=== PATIENT | female | born 1955 | race Caucasian/White ===

== ENCOUNTER 2017-04-13 09:57 | Emergency (ER) | payer MEDICARE, OTHER ==
[2017-04-13 10:07] VITALS: BP 153/86; PULSE 100; RESP 17; TEMP 98.1
--- NOTE | 2017-04-13 10:29 | ED ---
General Adult HPI - General Chief complaint: Skin/Abscess/Foreign Body Stated complaint: POSS LARYNGITIS, FEMALE Time Seen by Provider: 04/13/17 10:13 Source: patient, RN notes reviewed Mode of arrival: ambulatory Limitations: physical limitation - History of Present Illness Initial comments: Patient is 61-year-old female who presents emergency room today with multiple complaints. She has mid to sore throat for the last 3 weeks. States that she has some laryngitis. States since this started 3 weeks ago after she had some injections in her back. She is unsure if she was intubated for these injections but she states that she was put to sleep. Patient is unsure about his related. She also admits that over the last today she's noticed a bump in the groin area on the left side when she wipes after going the bathroom. She states feels like it is an ingrown hair. She states it's mildly tender. She denies any drainage or discharge from the area. She denies any other complaints or symptoms. Patient denies any recent fever, chills, shortness of breath, chest pain, back pain, abdominal pain, nausea or vomiting, numbness or tingling, dysuria or hematuria, constipation or diarrhea, headaches or visual changes, or any other complaints. - Related Data Home Medications Medication Instructions Recorded Confirmed Albuterol Inhaler [Ventolin Hfa 2 puff INHALATION RT-QID PRN 04/13/17 04/13/17 Inhaler] Amitriptyline HCl [Elavil] 50 mg PO HS 04/13/17 04/13/17 Multivitamins, Thera [Multivitamin 1 tab PO DAILY 04/13/17 04/13/17 (formulary)] Omeprazole [PriLOSEC] 20 mg PO DAILY 04/13/17 04/13/17 SUMAtriptan SUCCINATE [Imitrex] 25 mg PO DAILY PRN 04/13/17 04/13/17 Topiramate [Topamax] 25 mg PO BID 04/13/17 04/13/17 Vitamin E (Dl,Tocopheryl Acet) 400 unit PO DAILY 04/13/17 04/13/17 [Vitamin E] Previous Rx's Medication Instructions Recorded Cephalexin [Keflex] 500 mg PO Q12HR 10 Days cap 04/13/17 Allergies Allergy/AdvReac Type Severity Reaction Status Date / Time basil AdvReac Nausea & Verified 04/13/17 10:30 Vomiting oregano AdvReac Nausea & Verified 04/13/17 10:30 Vomiting Review of Systems ROS Statement: Those systems with pertinent positive or pertinent negative responses have been documented in the HPI. ROS Other: All systems not noted in ROS Statement are negative. Past Medical History Past Medical History: GERD/Reflux Additional Past Medical History / Comment(s): chronic back pain, migraines History of Any Multi-Drug Resistant Organisms: None Reported Past Surgical History: Appendectomy, Tubal Ligation Additional Past Surgical History / Comment(s): bilateral hand, right shoulder Past Psychological History: No Psychological Hx Reported Smoking Status: Current every day smoker Past Alcohol Use History: Rare Past Drug Use History: None Reported General Exam - General Exam Comments Initial Comments: General: The patient is awake and alert, in no distress, and does not appear acutely ill. Eye: Pupils are equal, round and reactive to light, extra-ocular movements are intact. No nystagmus. There is normal conjunctiva bilaterally. No signs of icterus. Ears, nose, mouth and throat: There are moist mucous membranes and no oral lesions. Neck: The neck is supple, there is no tenderness or JVD. Cardiovascular: There is a regular rate and rhythm. No murmur, rub or gallop is appreciated. Respiratory: Lungs are clear to auscultation, respirations are non-labored, breath sounds are equal. No wheezes, stridor, rales, or rhonchi. Gastrointestinal: Soft, non-distended, non-tender abdomen without masses or organomegaly noted. There is no rebound or guarding present. No CVA tenderness. Bowel sounds are unremarkable. Musculoskeletal: Normal ROM, no tenderness. Strength 5/5. Sensation intact. Pulses equal bilaterally 2+. Neurological: A&O x 3. CN II-XII intact, There are no obvious motor or sensory deficits. Coordination appears grossly intact. Speech is normal. Skin: Skin is warm and dry and no rashes or lesions are noted. Psychiatric: Cooperative, appropriate mood & affect, normal judgment. : [employer] Lord present for exam. No abnormality on visual external exam. On palpation to the left lower labia there is some mild firmness. No abscess head Limitations: physical limitation Course Vital Signs 04/13/17 10:04 Temperature 98.1 F Pulse Rate 100 Respiratory 17 Rate Blood Pressure 153/86 O2 Sat by Pulse 100 Oximetry Medical Decision Making - Medical Decision Making Patient's strep test negative. Patient does have small abscess or beginnings of a Bartholin's cyst left labia. There is no obvious swelling. No obvious abscess head to drain at this time. Will be started on antibiotics advised close follow-up or return here to emergency room symptoms increase worsen. - Lab Data Lab Results 04/13/17 Range/Units 10:45 Group A Strep Rapid Negative (Negative) Disposition Clinical Impression: Laryngitis, Bartholin's cyst Disposition: HOME SELF-CARE Condition: Good Instructions: Bartholin Cyst (ED) Additional Instructions: Please use medication as discussed. Please follow-up with family doctor in the next 2 days of symptoms have not improved. Please return to emergency room if the symptoms increase or worsen or for any other concerns. Prescriptions: Cephalexin [Keflex] 500 mg PO Q12HR 10 Days cap Referrals: India Che MD [Primary Care Provider] - 1-2 days Time of Disposition: 11:35
== END 2017-04-13 11:44 | disposition home or self-care (01) ==
LOC: EC 09:57
DX: N75.0 Cyst of Bartholin's gland (principal); J04.0 Acute laryngitis; K21.9 Gastro-esophageal reflux disease without esophagitis; F17.200 Nicotine dependence, unspecified, uncomplicated; Z79.899 Other long term (current) drug therapy; Z91.048 Other nonmedicinal substance allergy status; Z86.69 Personal history of other diseases of the nervous system and sense organs
CPT/HCPCS: 87081; 87430; 99283

== ENCOUNTER → 2024-04-12 | Outpatient (CLI) | payer MEDICARE ==
--- NOTE | 2024-04-12 11:05 | MR ---
EXAMINATION TYPE: MR lumbar spine wo con DATE OF EXAM: 04/12/2024 COMPARISON: NONE CLINICAL INDICATION: Female, 68 years old with history of M51.36 OTHER INTVRT DISC DEGEN PHH, Low beronica k pain into mady lower extremities TECHNIQUE: T1 and T2 axial and sagittal images of the lumbar spine are submitted. FINDINGS: There is no abnormal signal seen within the visualized spinal cord or paraspinal soft tissu es. Mild disc desiccation all levels. Disc spaces fairly well preserved. At L1-2 there is no disc herniation, canal stenosis, or foraminal encroachment. At L2-3 there is no disc herniation, canal stenosis, or foraminal encroachment. Hypertrophic change o f the facets. At L3-4 there is mild circumferential disc bulging but no canal stenosis or focal disc herniation. Fa cet arthropathy and ligamentum flavum hypertrophy. Neural foramina remain patent At L4-5 there is circumferential disc bulging with facet arthropathy and ligamentum flavum hypertroph y. Mild bilateral foraminal encroachment and canal stenosis. At L5-S1 there is a grade 1 anterolisthesis of L5-S1. Suspect there is a spondylolysis. Facet arthrop athy. Neural foramina patent. No focal disc herniation or canal stenosis. IMPRESSION: 1. Grade 1 spondylolisthesis L5-S1 with suspected spondylolysis. 2. Multilevel facet arthropathy and circumferential disc bulging with mild canal stenosis and foramin al encroachment L4-L5. [facility], , 04/12/2024 11:02 AM
== END | disposition home or self-care (01) ==
LOC: RADMRIMAIN 09:46
PROVIDERS: ATTEND Psychiatry & Neurology Neurology
DX: M48.061 Spinal stenosis, lumbar region without neurogenic claudication (principal); M51.369 Other intervertebral disc degeneration, lumbar region without mention of lumbar back pain or lower extremity pain; M47.896 Other spondylosis, lumbar region; M43.17 Spondylolisthesis, lumbosacral region
CPT/HCPCS: 72148

== ENCOUNTER → 2024-05-01 | Outpatient (CLI) | payer MEDICARE ==
--- NOTE | 2024-05-01 15:39 | MM ---
Reason for Exam: Screening (asymptomatic). Baseline mammogram. Patient History: Menarche at age 17. First Full-Term at age 21. Postmenopausal. Patient used Hormonal Contraceptives for 3 years. Risk Values: Vandana 5 year model risk: 1.4%. NCI Lifetime model risk: 4.8%. Prior Study Comparison: Patient's first Mammogram. Tissue Density: There are scattered areas of fibroglandular density. Findings: Analyzed By CAD. A few small benign-appearing round calcifications are present bilaterally. There is no suspicious group of microcalcifications or suspicious mass in either breast. Overall Assessment: Benign, BI-RAD 2 Management: Screening Mammogram of both breasts in 1 year. . Patient should continue monthly self-breast exams. A clinical breast exam by your physician is recommended on an annual basis. This exam should not preclude additional follow-up of suspicious palpable abnormalities. Note on Vandana scores and lifetime risk: 1. A Vandana score greater than 3% is considered moderate risk. If this is the case, consider specialist referral to assess eligibility for a risk reducing agent. 2. If overall lifetime risk for the development of breast cancer is 20% or higher, the patient may qualify for future screening with alternating mammogram and breast MRI. [facility], , 05/01/2024 3:36 PM. Electronically signed and approved by: Josh Shore M.D.
== END | disposition home or self-care (01) ==
LOC: RADMAMWWP 14:43
PROVIDERS: ATTEND Family Medicine
DX: Z12.31 Encounter for screening mammogram for malignant neoplasm of breast (principal); R92.323 Mammographic fibroglandular density, bilateral breasts; Z78.0 Asymptomatic menopausal state
CPT/HCPCS: 77067